=== PATIENT | female | born 1965 | race African-American/Black ===

== ENCOUNTER 2016-11-21 12:31 | Emergency (ER) | payer SELFPAY ==
[~2016-11-21] VITALS: Ht 167.6 cm; Wt 127.0 kg
[2016-11-21 12:33] VITALS: BP 151/72; PULSE 80; RESP 15; TEMP 98; O2SAT 100
--- NOTE | 2016-11-21 12:41 | PD ---
Physical Exam Date Seen by Provider: Nov 21, 2016 Time Seen by Provider: 12:40 Narrative 50 YOBF C/O 10/10 DENTAL PAIN FOR 4 DAYS VS REVIEWED WAITING FOR BED PLACEMENT Data Data Last Documented VS Vital Signs Date Time Temp Pulse Resp B/P Pulse Ox O2 Delivery O2 Flow Rate FiO2 11/21/16 12:33 98.0 80 15 151/72 100 MDM Supervised Visit with EARL: Neville Vázquez Nov 21, 2016 12:41
--- NOTE | 2016-11-21 13:37 | PD ---
HPI Chief Complaint: Oral / Dental Pain or Problem Time Seen by Provider: 13:36 Travel History International Travel<30 days: No Contact w/Intl Traveler<30days: No Traveled to known affect area: No PFSH Past Medical History ?: Unknown Data Data Last Documented VS Vital Signs Date Time Temp Pulse Resp B/P Pulse Ox O2 Delivery O2 Flow Rate FiO2 11/21/16 12:33 98.0 80 15 151/72 100 MDM Medical Decision Making Medical Screen Exam Complete: Yes Emergency Medical Condition: Yes Medical Record Reviewed: Yes Dinah Dowd Nov 21, 2016 13:37 Primary Impression: Dentalgia Referrals: [facility] Dentist Primary Care Physician Patient Instructions: Dental Abscess (ED), Dental Caries (ED), General Instructions, Toothache (ED) Departure Forms: Tests/Procedures, Work Release Enter return to work date: Nov 23, 2016 Additional Instructions: Complete full course of antibiotics Ibuprofen or Tylenol as directed and as needed to reduce pain and inflammation Use Magic mouthwash rinse as directed and as needed to decrease pain Use Peridex as directed for oral hygiene Warm or cool compresses to the affected area Follow-up with dentist Follow-up with primary care provider Return to emergency department immediately with worsening of symptoms Med/Other Pt SpecificInfo: Prescription(s) given Disposition: 01 DISCHARGE HOME Condition: Stable Dinah Dowd Nov 21, 2016 13:37
--- NOTE | 2016-11-21 13:48 | PD ---
HPI Chief Complaint: Oral / Dental Pain or Problem Time Seen by Provider: 13:44 Travel History International Travel<30 days: No Contact w/Intl Traveler<30days: No Traveled to known affect area: No History of Present Illness HPI 50-year-old female presents to emergency Department with complaint of left upper tooth pain 4 days. She was previously seen in an emergency room and is currently taking antibiotics. She tried following up with a dentist this morning but was told her insurance was not and affect for the work she needed. Denies fever, vomiting. Has been taking Toradol, Aleve, and other over-the- counter medications for symptom management. Symptoms are mild in severity. Allergies to Percocet and morphine. Has no other medical complaints. No other modifying factors or associated signs and symptoms. Review of Systems Except as stated in HPI: all other systems reviewed are Neg Physical Exam Narrative GENERAL: Well-nourished, well-developed female patient, in no acute distress; afebrile, nontoxic-appearing SKIN: Warm and dry. HEAD: Atraumatic. Normocephalic. No facial edema, erythema, tenderness on palpation. No lymphadenopathy. EYES: Pupils equal and round. No scleral icterus. No injection or drainage. ENT: Mucosa pink and moist. Airway patent. MOUTH: Mucous membranes moist, no lesions, tongue and gums appear normal. Tooth #16 with tenderness on palpation; without dental cavity noted. Surrounding gingiva is without erythema, edema, drainage. No obvious abscess noted. NECK: Trachea midline. No lymphadenopathy. CARDIOVASCULAR: Regular rate. RESPIRATORY: No accessory muscle use. GASTROINTESTINAL: Obese. MUSCULOSKELETAL: No obvious deformities. No clubbing. No cyanosis. No edema. NEUROLOGICAL: Awake and alert. Oriented 3. No obvious cranial nerve deficits. Motor grossly within normal limits. Normal speech. PSYCHIATRIC: Appropriate mood and affect; insight and judgment normal. Data Data Last Documented VS Vital Signs Date Time Temp Pulse Resp B/P Pulse Ox O2 Delivery O2 Flow Rate FiO2 11/21/16 12:33 98.0 80 15 151/72 100 MDM Medical Screen Exam Complete: Yes Emergency Medical Condition: No Differential Diagnosis Dentalgia Narrative Course 50-year-old female with dentalgia to tooth #16. Patient has already been seen for this complaint at another ER and is currently taking antibiotics. No facial edema or erythema. Patient is afebrile and nontoxic-appearing. Denies fever, vomiting. She did go to a dentist this morning and was told he insurance did not cover the procedure. She is down here on vacation from [place]. Instructed patient to follow up with a dentist and to continue antibiotics as prescribed. Vital signs are stable and the patient is stable for outpatient follow-up and treatment. The patient has no urgent or emergent medical complaints. There is no emergent or urgent medical need at this time. I instructed the patient to follow up with their primary care provider. A medical screening exam was performed: At the time of evaluation the presenting medical condition was determined not to be of an emergent nature. The patient was given the option of receiving additional care, but declined. Patient was given options for additional community resources from which to obtain care. The Patient Has Been advised to seek medical attention for their presenting complaint. The patient has been advised to return to the ER at any time if an emergent condition develops. Primary Impression: Encounter for medical screening examination Condition: Stable Dinah Dowd [facility] Nov 21, 2016 13:48
== END 2016-11-21 13:50 | disposition left against medical advice (07) ==
LOC: NEPK 12:31
DX: K08.89 Other specified disorders of teeth and supporting structures (principal); Z88.5 Allergy status to narcotic agent
CPT/HCPCS: 99281